=== PATIENT | male | born 1990 | race Two or more races ===

== ENCOUNTER 2017-10-15 11:40 | Emergency (ER) | payer OTHER ==
[~2017-10-15] VITALS: Ht 170.2 cm; Wt 81.6 kg
[2017-10-15] MEDS ORDERED: KETOROLAC TROMETH 60MG/2ML VIAL IM ONE (13:00)
[2017-10-15 13:23] VITALS: BP 112/65
== END 2017-10-15 12:59 ==
LOC: ER 11:40
DX: S20.211A Contusion of right front wall of thorax, initial encounter (principal); S96.911A Strain of unspecified muscle and tendon at ankle and foot level, right foot, initial encounter; S09.90XA Unspecified injury of head, initial encounter; W01.198A Fall on same level from slipping, tripping and stumbling with subsequent striking against other object, initial encounter; Y93.89 Activity, other specified; Y99.8 Other external cause status; Y92.89 Other specified places as the place of occurrence of the external cause
CPT/HCPCS: 70450; 71101; 73600; 94761; 96372; 99284; J1885